=== PATIENT | male | born 1980 | race African-American/Black ===

== ENCOUNTER 2023-09-02 23:24 | Emergency (ER) | payer SELFPAY ==
[2023-09-02 23:39] VITALS: BMI 30.7
[2023-09-03 01:30] LABS: BASO % 0.6 % (0-2.0); EOS % 0.8 % (0-4.5); HEMOGLOBIN 15.1 GM/dL (11.7-16.9); MCH 29.9 pg (25.7-33.7); MCHC 34.4 g/dl (32.0-35.9); MEAN PLT VOLUME 10.1 fl (7.5-11.1); NEUT % 82.6 % (42.8-82.8); PLATELET COUNT 264 10^3/uL (134-434); RBC 5.05 M/mm3 (4.00-5.60); RDW 13.1 % (11.9-15.9); WHITE BLOOD COUNT 10.4 K/mm3 (4.0-10.0)
[2023-09-03] MEDS ORDERED: METOCLOPRAMIDE HCL INJECTION 10 MG/2 ML VIAL ONE (01:37)
[2023-09-03] MEDS ORDERED: ACETAMINOPHEN INJECTION 100 ML IVPB ONE (01:37)
[2023-09-03] MEDS: LACTATED RINGERS SOLUTION 1000 ML INFUS.BAG IV ONE ×2 (01:43→02:36)
[2023-09-03] MEDS: ACETAMINOPHEN 1000 MG/100 ML BAG IVPB ONE (01:43)
[2023-09-03] MEDS: METOCLOPRAMIDE HCL INJECTION 10 MG/2 ML VIAL IVPUSH ONE (01:44)
[2023-09-03 01:48] LABS: CHLORIDE 105 mmol/L (98-107); SODIUM 136 mmol/L (136-145)
[2023-09-03 01:50] LABS: CALCIUM 9.5 mg/dL (8.5-10.1)
[2023-09-03 01:51] LABS: ALBUMIN 4.1 g/dl (3.4-5.0); BLOOD UREA NITROGEN 14.5 mg/dL (7-18); CO2 27 mmol/L (21-32); GLUCOSE,RANDOM 108 mg/dL (74-106); MAGNESIUM 2.2 mg/dL (1.8-2.4)
[2023-09-03 01:54] LABS: CREATININE 1.3 mg/dL (0.55-1.3); SGOT/AST 65 U/L (15-37)
[2023-09-03 01:55] LABS: BILIRUBIN,TOTAL 0.5 mg/dL (0.2-1)
[2023-09-03 01:56] LABS: TOT PROT 8.4 g/dl (6.4-8.2)
[2023-09-03 01:57] LABS: ALK PHOS 78 U/L (45-117)
[2023-09-03 02:13] LABS: ANION GAP 4 mmol/L (4-13); POTASSIUM 6.7 mmol/L (3.5-5.1); SGPT/ALT 29 U/L (13-61)
[2023-09-03 02:59] LABS: POTASSIUM 3.8 mmol/L (3.5-5.1)
[2023-09-03 03:00] LABS: CALCIUM 9.2 mg/dL (8.5-10.1)
[2023-09-03 03:01] LABS: BLOOD UREA NITROGEN 13.1 mg/dL (7-18)
[2023-09-03 03:04] LABS: CREATININE 1.2 mg/dL (0.55-1.3)
[2023-09-03 03:48] VITALS: BP 131/85; PULSE 85; RESP 19; TEMP 98.4
== END 2023-09-03 04:13 | disposition home or self-care (01) ==
LOC: JER 23:24
PROC: 3E033NZ Introduction of Analgesics, Hypnotics, Sedatives into Peripheral Vein, Percutaneous Approach (ICD-10-PCS; principal; 2023-09-03)
PROC: 3E033GC Introduction of Other Therapeutic Substance into Peripheral Vein, Percutaneous Approach (ICD-10-PCS; 2023-09-03)
DX: I95.1 Orthostatic hypotension (principal); R51.9 Headache, unspecified; R11.0 Nausea; R42 Dizziness and giddiness
CPT/HCPCS: 36415; 71046-TC-FY; 80048; 80053; 83735; 85025; 93005; 93010; 99285-25; J0131